=== PATIENT | male | born 1985 | race American Indian/Alaskan Native ===

== ENCOUNTER 2021-05-17 02:19 | Emergency (ER) | payer SELFPAY ==
[2021-05-17 02:43] VITALS: BP 130/76
[2021-05-17] MEDS ORDERED: predniSONE 50 MG TAB PO STA (04:25)
[2021-05-17] MEDS ORDERED: IPRATROPIUM/ALBUTEROL SULFATE 3 ML AMPUL.NEB IH ONE ×2 (04:25→04:27)
--- NOTE | 2021-05-17 05:23 | Emergency Department Report ---
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 He is out of his home nebulizer mix was unable to UT 2 over asthma attack with medications and 6 medication refill and treatment here in emergency department. No hemoptysis no hematemesis no melena hematochezia no nausea no vomiting no palpitations. No fever, chills, sweats. No lower extremity swelling MD Complaint: "asthma attack", shortness of breath, wheezing -: Gradual Severity: mild Context: ran out of meds Associated Symptoms: none - Related Data Previous Rx's Medication Instructions Recorded Last Taken Type ALBUTEROL NEB's [Proventil 0.083% 2.5 mg IH TID PRN #30 neb 05/17/21 Unknown Rx NEBS] Albuterol Mdi (or & Nicu Only) 1 puff IH Q4-6H PRN #1 inha 05/17/21 Unknown Rx [ProAir HFA Inhaler] Montelukast [Singulair] 10 mg PO QPM #30 tablet 05/17/21 Unknown Rx predniSONE [Deltasone] 50 mg PO QDAY #5 tab 05/17/21 Unknown Rx Allergies Allergy/AdvReac Type Severity Reaction Status Date / Time No Known Allergies Allergy Verified 05/17/21 04:08 ED Review of Systems ROS: Stated complaint: SOB Other details as noted in HPI Comment: All other systems reviewed and negative ED Past Medical Hx - Medications Home Medications: Home Medications Medication Instructions Recorded Confirmed Last Taken Type ALBUTEROL NEB's [Proventil 0.083% 2.5 mg IH TID PRN #30 neb 05/17/21 Unknown Rx NEBS] Albuterol Mdi (or & Nicu Only) 1 puff IH Q4-6H PRN #1 inha 05/17/21 Unknown Rx [ProAir HFA Inhaler] Montelukast [Singulair] 10 mg PO QPM #30 tablet 05/17/21 Unknown Rx predniSONE [Deltasone] 50 mg PO QDAY #5 tab 05/17/21 Unknown Rx ED Physical Exam - General Limitations: No Limitations General appearance: alert, in no apparent distress - Head Head exam: Present: atraumatic, normocephalic - Eye Eye exam: Present: normal appearance, PERRL, EOMI Pupils: Present: normal accommodation - ENT ENT exam: Present: mucous membranes moist - Neck Neck exam: Present: normal inspection - Respiratory Respiratory exam: Present: normal lung sounds bilaterally, wheezes. Absent: respiratory distress, rales, rhonchi, chest wall tenderness, decreased breath sounds, prolonged expiratory - Cardiovascular Cardiovascular Exam: Present: regular rate, normal rhythm. Absent: systolic murmur, diastolic murmur, rubs, gallop - GI/Abdominal GI/Abdominal exam: Present: soft, normal bowel sounds. Absent: distended, guarding, rebound, hyperactive bowel sounds, hypoactive bowel sounds, bruit, pulsatile mass - Rectal Rectal exam: Present: deferred - Extremities Exam Extremities exam: Present: normal inspection - Back Exam Back exam: Present: normal inspection - Neurological Exam Neurological exam: Present: alert, oriented X3 - Psychiatric Psychiatric exam: Present: normal affect, normal mood - Skin Skin exam: Present: warm, dry, intact, normal color. Absent: rash ED Course Vital Signs 05/17/21 05/17/21 05/17/21 02:30 04:40 05:19 Temperature 97.6 F Pulse Rate 77 Respiratory 20 18 Rate Blood Pressure 130/76 O2 Sat by Pulse 98 96 Oximetry ED Medical Decision Making - Medical Decision Making No altered mental status, saddle respirations, belly breathing or other signs of impending ventilatory failure. No intubations or recent admissions to the [facility] for asthma. Unlikely pneumonia, CHF, COPD, GERD Workup Review include a chest x-ray which was normal she also received steroids and albuterol Therapies: Prednisone 50 mg PO. Albuterol nebulizer Reassessment: Patient improved with albuterol and ipratropium in less than 3 hours. Disposition: Discharge home with return precautions. Advised to follow up with primary care physician within next 24-48 hours. Aside from this acute exacerbation patient has been well controlled on baseline home regimen. Rx short steroid course, albuterol, Singulair, Flovent Critical care attestation.: If time is entered above; I have spent that time in minutes in the direct care of this critically ill patient, excluding procedure time. ED Disposition Clinical Impression: Asthma attack Disposition: 01 HOME / SELF CARE / HOMELESS Is pt being admited?: No Does the pt Need Aspirin: No Condition: Stable Instructions: Asthma, Adult, Bronchospasm, Adult, Form - Asthma Action Plan, Adult, Peak Flow Meter, Asthma Attack Prevention, Adult Additional Instructions: You were seen in emergency department today for shortness of breath. Symptoms improved with albuterol and steroids and your evaluation did not show evidence of any medical conditions requiring emergent intervention at this time. You have been given a prescription for steroids and an inhaler please take them as directed. Please follow-up with your primary care physician within 2 days. Return to emerge department if you experience worsening shortness of breath, chest pain, headache, lightheadedness or any other symptoms sick suggestion your condition is worsening Prescriptions: predniSONE [Deltasone] 50 mg PO QDAY #5 tab Albuterol Mdi (or & Nicu Only) [ProAir HFA Inhaler] 1 puff IH Q4-6H PRN #1 inha PRN Reason: Cough ALBUTEROL NEB's [Proventil 0.083% NEBS] 2.5 mg IH TID PRN #30 neb PRN Reason: Wheezing Montelukast [Singulair] 10 mg PO QPM #30 tablet Referrals: [facility] [Provider Group] - 3-5 Days
== END 2021-05-17 06:30 | disposition home or self-care (01) ==
LOC: ED 02:19
DX: J45.909 Unspecified asthma, uncomplicated (principal)
CPT/HCPCS: 94640; 99282; J7512